=== PATIENT | male | born 1970 | race Caucasian/White ===

== ENCOUNTER → 2019-02-18 | Outpatient (CLI) | payer BC ==
[~2019-02-18] MED LIST: HOLD METFORMIN - RECEIVED CONTRAST 20 ML VIAL IV SCH; IOHEXOL 350 MG/ML 100 ML (OMNIPAQUE 350) VIAL IV ONE
[2019-02-18 16:52] LABS: BUN/CREATININE RATIO 18; CREATININE SERUM 0.97 MG/DL (0.60-1.30); GFR ESTIMATED > 60
--- NOTE | 2019-02-18 17:25 | Diagnostic Imaging Report ---
PROCEDURE: CT chest with contrast only. TECHNIQUE: Multiple contiguous axial images were obtained through the chest after administration of intravenous contrast. Auto Exposure Controls were utilized during the CT exam to meet ALARA standards for radiation dose reduction. INDICATION: Dyspnea, cough, hypersomnia. COMPARISON: None. FINDINGS: The heart is normal in size. There is no pericardial effusion. There is a large main pulmonary artery measuring 4.5 cm. There is coronary atherosclerosis. No mediastinal adenopathy is seen. No axillary adenopathy is seen. There is no pleural effusion or pneumothorax. No focal consolidation is seen. No central endobronchial lesions are seen. The lungs appear clear. Imaged portions of the upper abdomen demonstrate splenic granulomas. No acute abnormality is seen. No acute abnormality is seen in the osseous structures as well. Sternotomy wires are noted. IMPRESSION: 1. Large main pulmonary artery, can be seen with pulmonary hypertension. 2. No pulmonary consolidation seen. Dictated by: Dictated on workstation # [id number]
== END ==
LOC: RAD 16:17
PROVIDERS: ATTEND Nurse Practitioner Family
DX: J30.9 Allergic rhinitis, unspecified (principal); G47.10 Hypersomnia, unspecified; J98.4 Other disorders of lung; I28.8 Other diseases of pulmonary vessels; Z98.890 Other specified postprocedural states
CPT/HCPCS: 36415; 71260; 82565; 84520

== ENCOUNTER → 2019-04-24 | Outpatient (CLI) | payer BC ==
[~2019-04-24] MED LIST changes: -HOLD METFORMIN - RECEIVED CONTRAST 20 ML VIAL IV SCH; -IOHEXOL 350 MG/ML 100 ML (OMNIPAQUE 350) VIAL IV ONE; +RT-ALBUTEROL SULF 2.5 MG/3 ML PRE-MIX VIAL INH ONE
== END ==
LOC: RT 02-13 11:20
PROVIDERS: ATTEND Nurse Practitioner Family
DX: J30.9 Allergic rhinitis, unspecified (principal); G47.10 Hypersomnia, unspecified; J98.4 Other disorders of lung
CPT/HCPCS: 94060; 94726; 94729